=== PATIENT | female | born 1960 | race Caucasian/White ===

== ENCOUNTER 2021-10-24 18:46 | Emergency (ER) | payer BC ==
[2021-10-24 21:22] LABS: CORONAVIRUS COVID-19 NAA POSITIVE (NEGATIVE); INFLUENZA A NAA NEGATIVE (NEGATIVE); INFLUENZA B NAA NEGATIVE (NEGATIVE)
== END 2021-10-24 22:09 | disposition home or self-care (01) ==
LOC: MW.ED 18:46
DX: U07.1 COVID-19 (principal); I10 Essential (primary) hypertension; E78.00 Pure hypercholesterolemia, unspecified; Z79.899 Other long term (current) drug therapy
CPT/HCPCS: 0240U; 93005; 99283